=== PATIENT | female | born 1955 | race Caucasian/White ===

== ENCOUNTER 2017-10-12 14:05 | Emergency (ER) | payer OTHER ==
[~2017-10-12] VITALS: Ht 157.5 cm; Wt 62.0 kg
[~2017-10-12 14:05] MED LIST: ACET325T45 PO; CEPH-443 PO; DIAZ5TAB4 PO; DOCU-144 PO; IBUP-1542 PO; OMEP40CA6 PO; POLY17PO6 PO; SENN-53 PO
[2017-10-12 14:08] VITALS: Ht 157.5 cm; Wt 62.0 kg
[2017-10-12 15:11] LABS: BASOPHILS % 0.2 % (0.0-2.0); EOSINOPHILS # 0.1 10^3/ul (0.0-0.5); EOSINOPHILS % 0.8 % (0.0-7.0); HEMATOCRIT 38.9 % (37.0-47.0); HEMOGLOBIN 12.9 g/dl (12.0-16.0); LYMPHOCYTES # 1.5 10^3/ul (0.8-2.9); LYMPHOCYTES % 22.6 % (15.0-51.0); MEAN CORPUSCULAR HGB CONC 33.2 g/dl (32.0-37.0); MEAN CORPUSCULAR VOLUME 87.4 fl (82.0-101.0); MEAN PLATELET VOLUME 10.9 fl (7.4-10.4); MONOCYTE # 0.6 10^3/ul (0.3-0.9); MONOCYTES % 8.7 % (0.0-11.0); NEUTROPHIL # 4.5 10^3/ul (1.6-7.5); NEUTROPHILS % 67.5 % (39.0-77.0); PLATELET COUNT 253 10^3/UL (140-415); RED BLOOD COUNT 4.45 10^6/ul (4.20-5.40); RED CELL DISTRIBUTION WIDTH 13.1 % (11.5-14.5); WHITE BLOOD COUNT 6.6 10^3/ul (4.8-10.8)
[2017-10-12 15:19] LABS: ALBUMIN 3.9 g/dl (3.3-4.9); ALBUMIN/GLOBULIN RATIO 1.34; BILIRUBIN,INDIRECT 0.3 mg/dl (0-1.1); BILIRUBIN,TOTAL 0.3 mg/dl (0.2-1.3); CALCIUM 9.1 mg/dl (8.4-10.2); CREATININE 0.53 mg/dl (0.44-1.00); POTASSIUM 4.4 mmol/L (3.5-5.1); TOTAL PROTEIN 6.8 g/dl (6.1-8.1)
--- NOTE | 2017-10-12 16:18 | RADRPT ---
PROCEDURE: CT Brain without contrast. CLINICAL INDICATION: Stroke. TECHNIQUE: A CT of the brain was performed on a multidetector CT scanner utilizing axial imaging f rom the skull base through the vertex without IV contrast. Multiplanar reformatted images were made . Images were reviewed on a PACS workstation. The CTDIvol is 44 mGy and the DLP is or 720 mGycm. DICOM images are available. One or more of the following dose reduction techniques were utilized: 1.) Automated exposure control 2.) Adjustment of the mA +/- kV according to patient's size 3.) Use of iterative reconstruction technique. COMPARISON: None FINDINGS: There is no intracranial hemorrhage, mass effect, or midline shift. No extra-axial fluid collection is seen. The ventricles and sulci are normal in size and configuration. The density of the brain is normal, and the driver white matter differentiation appears well-preserved. The visualized paranasal sinuses and osseous structures are grossly unremarkable. A single calcification is present deep in the right frontal sulcus likely sequela of an old inflammatory or infectious process. IMPRESSION: 1. No evidence of acute intracranial pathology. 2. The brain is normal in appearance. .Elio Samaniego MD, MD Date Time Electronically viewed and signed by .Elio Samaniego MD, MD on 10/12/2017 16:18 .A/
--- NOTE | 2017-10-12 16:49 | RADRPT ---
PROCEDURE: CT CERVICAL SPINE WITHOUT CONTRAST CLINICAL INDICATION: 62 years of age, female. Right arm pain and numbness. TECHNIQUE: A CT of the cervical spine was performed utilizing thin section axial images from the s kull base through the thoracic inlet. Coronal and sagittal reformatted images were obtained from th e axial source images. Images were reviewed on a high-resolution PACS workstation. DICOM images are available. The CTDIvol is 22 mGy and the DLP is 524 mGy-cm. One or more of the following dose reduction techniques were used: - Automated exposure control. - Adjustment of the mA and/or kV according to patient size. - Use of iterative reconstruction technique. COMPARISON: None available. FINDINGS: Cervical spine is imaged from the skull base to T3 ALIGNMENT: There is a posterior instrumented fusion from C4-C6 with facet screws transfixed by a luis tical bridging rods. Right C6-7 facet screw demonstrates radiolucency around the tip of the screw th at crosses the right C6-7 facet joint and the right C6-7 facet joint is not fused (604/27). Left C6- 7 facet screw courses through the left inferior C6 facet protrudes into the superior left C6-7 inter vertebral foramen. Left C6-7 facet is not fused. 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 There is bony fusion of the C4-5 and C5-6 discs. There is mild grade 1 anterolisthesis at C6-7 with mild widening of the right C6-7 facet joint. VERTEBRAE: Bone mineral density appears normal. No suspicious bone lesions. There is a right cervical rib and t here is along the left transverse process at C7. Vertebral bodies and posterior elements are intact without acute fracture. DISKS AND FACETS: There is arthritis of the odonto-axial joint. There is degenerative disc disease at C7-T1 and T1-2 w ith disc space narrowing and anterior osteophytes. There is a superior endplate Schmorl's node at T3 . Atlanto-occipetal joints: Unremarkable. 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 C1-2 facet joints are normal. C2-C3: Disc is unremarkable. Facet joints are unremarkable. Negative for significant stenosis or ner ve root compression. C3-C4: There is a small posterior central disc protrusion that contacts the spinal cord anteriorly. Facet joints are unremarkable. Mild central canal stenosis. Negative for intervertebral foraminal s tenosis and negative for nerve root compression. C4-C5: There has been posterior instrumented fusion. Facet joints are fused. There is mild calcifi cation of the posterior longitudinal ligament. Negative for significant stenosis or nerve root compr ession. C5-C6: There has been posterior instrumented fusion. Facet joints are fused. There is mild calcific ation of the posterior longitudinal ligament. Negative for significant stenosis or nerve root compre ssion. C6-C7: There is mild grade 1 anterolisthesis with mild uncovering of the disc. There is bony resorp tion around the right C6 facet screw with mild widening of the right C6-7 facet joint. The left C6 f acet screw protrudes into the superior left C6-7 intervertebral foramen resulting in mild stenosis ( and 604/45). There is mild left C6-7 facet joint arthritis. Negative for central canal stenosis and negative for nerve root compression. C7-T1: Disc is unremarkable. Facet joints are unremarkable. Negative for significant central canal or foraminal stenosis or nerve root compression. There is a prominent nerve root sleeve in the left C7-T1 intervertebral foramen. There is a right cervical rib and there is along the left transverse p rocess at C7. EXTRAVERTEBRAL SOFT TISSUES: Normal. Additional comment: None. IMPRESSION: 1. Status post posterior instrumented fusion at C4-5 and C5-6 with pedicle screws and rods. 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 2. Right C6 facet screw demonstrates bony resorption at its tip that courses through the right C6-7 facet joint. Left C6 facet screw enters the superior left C6-7 intervertebral foramen with mild sten osis but without nerve root compression. There is mild grade 1 anterolisthesis at C6-7 with mild wid ening of the right C6-7 facet joint. C6-7 facet joints are not fused. 3. At C7, there is a right cervical rib and there is a long left transverse process. This could cont ribute to thoracic outlet syndrome. Clinical correlation is required. 4. Mild degenerative changes as described. RPTAT: HCTS Claudiay Sadro, Physician Date Time Electronically viewed and signed by Lisa Apple Physician on 10/12/2017 16:49 CS/
[2017-10-12] MEDS ORDERED: ALPR0.5T PO (18:10)
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
[2017-10-12 18:22] VITALS: BP 110/58; PULSE 58; RESP 18
== END 2017-10-12 18:23 | disposition home or self-care (01) ==
LOC: E/R 14:05
DX: F41.1 Generalized anxiety disorder (principal); R00.2 Palpitations
CPT/HCPCS: 36415; 70450; 72125; 80053; 85025; 93005; Z7502

== ENCOUNTER 2018-01-19 15:21 | Emergency (ER) | END 2018-01-19 19:53 | disposition home or self-care (01) ==

== ENCOUNTER 2019-01-10 13:41 | Emergency (ER) | payer OTHER ==
[~2019-01-10] VITALS: Ht 162.6 cm; Wt 65.0 kg
[~2019-01-10 13:41] MED LIST changes: +ALPR0.5T PO; -CEPH-443 PO; +CIPR500T4 PO; -DOCU-144 PO; -IBUP-1542 PO; +SENN-120 PO; -SENN-53 PO
[2019-01-10 13:55] VITALS: Ht 162.6 cm; Wt 65.0 kg
[2019-01-10] MEDS ORDERED: morphine 4 MG/ML VIAL IV STA (14:35)
[2019-01-10] MEDS ORDERED: ONDANSETRON 4 MG INJ IV STA ×2 (14:35→16:13)
[2019-01-10] MEDS ORDERED: SOD CHLORIDE 0.9% 1,000 ML IV STA (14:35)
[2019-01-10] MEDS ORDERED: HYDROmorphONE 1 MG/ML SYG IV STA (16:13)
[2019-01-10] MEDS ORDERED: CIPR500T4 PO (16:55)
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
[2019-01-10 17:53] VITALS: BP 135/74; PULSE 65; RESP 18
== END 2019-01-10 17:58 | disposition home or self-care (01) ==
LOC: E/R 13:41
DX: G44.209 Tension-type headache, unspecified, not intractable (principal); T83.021A Displacement of indwelling urethral catheter, initial encounter; R11.0 Nausea; N18.9 Chronic kidney disease, unspecified; R94.02 Abnormal brain scan; R40.2142 Coma scale, eyes open, spontaneous, at arrival to emergency department; R40.2362 Coma scale, best motor response, obeys commands, at arrival to emergency department; R40.2252 Coma scale, best verbal response, oriented, at arrival to emergency department; Y73.2 Prosthetic and other implants, materials and accessory gastroenterology and urology devices associated with adverse incidents
CPT/HCPCS: 51702; 70450; 80053; 81003; 84484; 85025; 85610; 85730; 87086; 93005; 96374; 96375; 96376; J1170; J2270; J2405; J7030; Z7502

== ENCOUNTER 2019-09-02 15:38 | Emergency (ER) | payer OTHER ==
[~2019-09-02] VITALS: Ht 152.4 cm; Wt 140.0 kg
[~2019-09-02 15:38] MED LIST changes: -ALPR0.5T PO; +CEPH-443 PO; +OMEP40CA38 PO; -OMEP40CA6 PO
[2019-09-02 15:46] VITALS: Ht 152.4 cm; Wt 140.0 kg
[2019-09-02 17:59] VITALS: BP 101/63; PULSE 72; RESP 18
== END 2019-09-02 18:02 | disposition home or self-care (01) ==
LOC: FTE 15:38
DX: N30.90 Cystitis, unspecified without hematuria (principal); N18.9 Chronic kidney disease, unspecified
CPT/HCPCS: 36415; 80053; 81001; 83690; 85025; 87086; Z7502; 99283